=== PATIENT | female | born 1985 | race Caucasian/White ===

== ENCOUNTER 2017-03-15 20:05 | Emergency (ER) | payer MEDICAID ==
[~2017-03-15] VITALS: Ht 165.1 cm; Wt 101.2 kg
[~2017-03-15 20:05] MED LIST: AMOXIL500 MG PO; CIPRO HC 0.2%-110 ML OT; IRON TABLETS325 MG PO; LABETALOL200 MG PO; LASIX 20MG. TAB20 MG PO; MACROBID 100MG100 MG PO; PRENATAL PLUS1 TA1 PO; TAMIFLU 75MG CA75 MG PO; TYLENOL ES500 MG PO
[2017-03-15] MEDS ORDERED: HYDROCHLOROTHIA25 M1 PO (21:03)
--- NOTE | 2017-03-15 21:04 | Emergency Room Report ---
History of Present Illness Time Seen by [id number] Presenting Problem in Triage Pt arrived:Walked Presenting Problem:WHILE PLAYING SOFTBALL SHE WAS HIT IN THE HIT WITH THE BALL. 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 N Clinical Suspician of Infection? N Mental Status: 1 - Regular (Normal Baseline) Sepsis Risk:Possible Sepsis Risk Have you (or family members/close friends) recently traveled outside the [place]? N If Yes, where/when: Have you had exposure to infectious disease within the past month? N TB? Other? Specify: Comment The patient was hit with a thrown softball at about 2:30 to 3 PM. It hit her in her glasses in the region of her left eye. She sustained a laceration under her LEFT eyebrow from the glasses. The glasses were not broken or shattered. She had no loss of consciousness. Mild headache around the area of impact. Last tetanus shot greater than 5 years ago. No other injuries. No vomiting. She wants Dermabond, rather than sutures. ALLERGIES Coded Allergies: No Known Allergies (10/08/16) History Medical History General CAD? No Angina: No VA: No Hypertension? Yes Hyperlipidemia? No CHF? No DVT? No PE? No COPD? No Asthma? No Anemia? No GERD? No Gastric ulcers? No GI Bleed? No Hernia? No Thyroid Problems? No Hypothyroidism? No CVA? No Seizures? No Diabetes? No Renal Insuffiency? No End Stage Renal Disease? No UTI? No Stones? No GB Disease: No Nephritic Syndrome? No Asplenia? No Hepatitis? No Sickle Cell Disease? No Arthritis? No Migraines? No Cataracts? No Glaucoma? No MRSA? No HIV? No TB? No Anxiety? No Depression? No Cancer? 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 Social History Smoking Hx Smoker: Current Every Day Smoker Tobacco: Yes Type Cigarettes Packs/day < 1 Pack Are you/the child exposed to second-hand smoke: Yes Alcohol Alcohol: No Review of Systems All Other Systems Reviewed and Negative Eyes blurred vision (LEFT eye on upward gaze), denies blindness Musculoskeletal denies neck pain Psychiatric/Neurological headache, denies numbness, denies weakness Physical Exam Vital Signs Vital Signs Date Time Temp Pulse Resp B/P Pulse O2 O2 Flow FiO2 Ox Delivery Rate 03/15 2048 109 198 179/109 98 General Appearance normal appearance, no apparent distress, high BMI Eye Exam - bilateral eye normal exam, bilateral eye PERRL, bilateral eye EOMI Ear, Nose, Throat 2 cm laceration transversely under the medial aspect of her RIGHT eyebrow. Mild ecchymosis of upper lid. Neck normal inspection, non-tender, supple, full range of motion Respiratory Status Yes: trachea midline, chest symmetrical, non tender chest. No: respiratory distress. Lung Sounds bilateral: normal breath sounds, lungs clear. 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 No Results/Orders Current Medication Orders Sig/Ritchie Start time Last Medication Dose Route Stop Time Status Admin Diphtheria/Pertussis/ 0.5 ML ONCE ONE 03/15 2100 DC Tetanus Vacc IM 03/15 2101 Procedures Laceration/Wound Repair Progress Laceration Repair Performed by: CLARIBEL ONEAL Consent: Verbal consent obtained. Risks and benefits: risks, benefits and alternatives were discussed Consent given by: patient Patient identity confirmed: verbally with patient Laceration location: Face Laceration length: 2 cm Prep: Hibiclens cleansing. Normal saline rinse. Patient sedated: no Closure material: Dermabond Complexity: simple Patient tolerance: Patient tolerated the procedure well with no immediate complications Departure Departure Disposition DC Home or Self Care(routine) Clinical Impression Primary Impression: Laceration of face Qualifiers: Encounter type: initial encounter Qualified Code: S01.81XA - Laceration without foreign body of other part of head, initial encounter Condition STABLE Patient Instructions DI for Laceration Repair With Dermabond Additional Instructions You are being provided with a list of physicians available for follow-up of your condition. Please call a physician on this list to arrange a follow-up appointment as soon as possible. Additional instructions regarding BLOOD PRESSURE: One of your blood pressure readings was higher than normal (greater than 120/80) today. Please contact your primary care physician for further evaluation of your blood pressure within 2 wks. Prescriptions Current Visit Scripts HYDROCHLOROTHIAZIDE (Hydrochlorothiazide) 25 MG PO DAILY #30 TAB ED Critical Care Critical Care No
--- NOTE | 2017-03-15 21:04 | Emergency Room Report ---
History of Present Illness Time Seen by [id number] Presenting Problem in Triage Pt arrived:Walked Presenting Problem:WHILE PLAYING SOFTBALL SHE WAS HIT IN THE HIT WITH THE BALL. 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 N Clinical Suspician of Infection? N Mental Status: 1 - Regular (Normal Baseline) Sepsis Risk:Possible Sepsis Risk Have you (or family members/close friends) recently traveled outside the [place]? N If Yes, where/when: Have you had exposure to infectious disease within the past month? N TB? Other? Specify: Comment The patient was hit with a thrown softball at about 2:30 to 3 PM. It hit her in her glasses in the region of her left eye. She sustained a laceration under her LEFT eyebrow from the glasses. The glasses were not broken or shattered. She had no loss of consciousness. Mild headache around the area of impact. Last tetanus shot greater than 5 years ago. No other injuries. No vomiting. She wants Dermabond, rather than sutures. ALLERGIES Coded Allergies: No Known Allergies (10/08/16) History Medical History General CAD? No Angina: No MO: No Hypertension? Yes Hyperlipidemia? No CHF? No DVT? No PE? No COPD? No Asthma? No Anemia? No GERD? No Gastric ulcers? No GI Bleed? No Hernia? No Thyroid Problems? No Hypothyroidism? No CVA? No Seizures? No Diabetes? No Renal Insuffiency? No End Stage Renal Disease? No UTI? No Stones? No GB Disease: No Nephritic Syndrome? No Asplenia? No Hepatitis? No Sickle Cell Disease? No Arthritis? No Migraines? No Cataracts? No Glaucoma? No MRSA? No HIV? No TB? No Anxiety? No Depression? No Cancer? 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 Social History Smoking Hx Smoker: Current Every Day Smoker Tobacco: Yes Type Cigarettes Packs/day < 1 Pack Are you/the child exposed to second-hand smoke: Yes Alcohol Alcohol: No Review of Systems All Other Systems Reviewed and Negative Eyes blurred vision (LEFT eye on upward gaze), denies blindness Musculoskeletal denies neck pain Psychiatric/Neurological headache, denies numbness, denies weakness Physical Exam Vital Signs Vital Signs Date Time Temp Pulse Resp B/P Pulse O2 O2 Flow FiO2 Ox Delivery Rate 03/15 2048 109 198 179/109 98 General Appearance normal appearance, no apparent distress, high BMI Eye Exam - bilateral eye normal exam, bilateral eye PERRL, bilateral eye EOMI Ear, Nose, Throat 2 cm laceration transversely under the medial aspect of her RIGHT eyebrow. Mild ecchymosis of upper lid. Neck normal inspection, non-tender, supple, full range of motion Respiratory Status Yes: trachea midline, chest symmetrical, non tender chest. No: respiratory distress. Lung Sounds bilateral: normal breath sounds, lungs clear. 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 No Results/Orders Current Medication Orders Sig/Ritchie Start time Last Medication Dose Route Stop Time Status Admin Diphtheria/Pertussis/ 0.5 ML ONCE ONE 03/15 2100 DC Tetanus Vacc IM 03/15 2101 Procedures Laceration/Wound Repair Progress Laceration Repair Performed by: CLARIBEL ONEAL Consent: Verbal consent obtained. Risks and benefits: risks, benefits and alternatives were discussed Consent given by: patient Patient identity confirmed: verbally with patient Laceration location: Face Laceration length: 2 cm Prep: Hibiclens cleansing. Normal saline rinse. Patient sedated: no Closure material: Dermabond Complexity: simple Patient tolerance: Patient tolerated the procedure well with no immediate complications Departure Departure Disposition DC Home or Self Care(routine) Clinical Impression Primary Impression: Laceration of face Qualifiers: Encounter type: initial encounter Qualified Code: S01.81XA - Laceration without foreign body of other part of head, initial encounter Condition STABLE Patient Instructions DI for Laceration Repair With Dermabond Additional Instructions You are being provided with a list of physicians available for follow-up of your condition. Please call a physician on this list to arrange a follow-up appointment as soon as possible. Additional instructions regarding BLOOD PRESSURE: One of your blood pressure readings was higher than normal (greater than 120/80) today. Please contact your primary care physician for further evaluation of your blood pressure within 2 wks. Prescriptions Current Visit Scripts HYDROCHLOROTHIAZIDE (Hydrochlorothiazide) 25 MG PO DAILY #30 TAB ED Critical Care Critical Care No
[2017-03-15 21:21] VITALS: BP 179/109
--- OUTSIDE RECORDS SUMMARY | 2017-03-15 21:22 | External Medical Summary Rpt ---
Author Author , TYRONE HANSEN Address Unknown Phone [email or web address] Care Team Providers Care Grass Cutter Name Role Phone Mahesh Gannon MD, Unavailable Unavailable Mahesh PIERRE LORI, GABBY Unavailable Unavailable LORI GABBY SANDOVAL, GABBY Unavailable Unavailable LORI [facility] Unavailable Unavailable [place], [facility] [place] DUC OMAR, DUC Unavailable Unavailable OMAR DUC OMAR, DUC Unavailable Unavailable OMAR [facility] Unavailable Unavailable [place], [facility] Unavailable Unavailable [facility], [facility] Unavailable Unavailable [facility], [facility] Helena Molina MD, Unavailable Unavailable Helena Molina MD PICKLESIMER JR LORENA, Unavailable Unavailable PICKLESIMER JR LORENA PICKLESIMER JR LORENA, Unavailable Unavailable PICKLESIMER JR LORENA SCIFRES ANG, SCIFRES Unavailable Unavailable ANG SCIFRES ANG, SCIFRES Unavailable Unavailable ANG Purpose Continuity of Care Document - 12-13-2012 through 2016 Problems Code Diagnosis DOS Provider Status I10 ESSENTIAL 10-08-2016 [facility] HYPERTENSIO INC N J101 FLU D/T OTH 10-08-2016 [facility] VIRUS OTH INC RESP MANIFESTATI ONS Z720 TOBACCO USE 10-08-2016 [facility] INC 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 05-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 SCIFRES ANG BILATERAL V2511 ENC FOR 12-20-2013 GABBY LORI INSERTION INTRAUTERIN E CONTRACEPT DEVICE V242 ROUTINE 12-13-2013 PICKLESIMER JR LORENA FOLLOW-UP V745 SCREENING 12-13-2013 MARIELYIMER EXAMINATION JR LORENA FOR VENEREAL DISEASE 7823 EDEMA 11-12-2013 DUC OMAR 04580 MORBID 11-08-2013 [facility] 71239 BENIGN 11-08-2013 [facility] HYPERTENSIO INC N WITH DELIVERY 11216 OBESITY 11-08-2013 [facility] PG [facility] CHILDBIRTH/ INC THE PP DELIVERED 650 NORMAL 11-08-2013 PIERRE LORI DELIVERY 49140 OTH&UNS CRD 11-08-2013 [facility]ANGL [facility] W/O COMPRS INC COMP L&D DELIV 26999 FIRST-DEGRE 11-08-2013 [facility] E PERINEAL [facility] LACERATION INC WITH DELIVERY V072 NEED FOR 11-08-2013 [facility] PROPHYLACTI [facility] C INC IMMUNOTHERA PY V270 OUTCOME OF 11-08-2013 [facility]ERY [facility] SINGLE INC LIVEBORN V220 SUPERVISION 11-03-2013 PIERRE LORI OF NORMAL FIRST 89364 TRANSIENT 10-27-2013 [facility]YPERTENSIO [facility] N OF INC ANTEPARTUM 31093 BREECH 10-13-2013 GABBY LORI PRESENTATIO N W/O MENTION VERSION ANTPRTM 80982 EXCESS 10-13-2013 GABBY LORI GROWTH AFFECT MGMT MOTH ANTPRTM V283 ENCOUNTER 06-30-2013 GABBY LORI ROUTINE SCREEN MALFORMATIO N ULTRASONIC 6268 OTH D/O 04-26-2013 [facility]ENSTRUATIO [facility] N&OTH ABN INC BLEED FE GNT TRACT 99836 OTHER 04-20-2013 GABBY LORI SPECIFED COMPLICATIO N ANTEPARTUM 89023 TRICHOMONAL 04-13-2013 PICKLESIMER LORENA VULVOVAGINI TIS V221 SUPERVISION 04-13-2013 PICKLESIMER OF OTHER JR LORENA NORMAL V7242 04-13-2013 GABBY LORI EXAMINATION OR TEST POSITIVE RESULT V2689 OTHER 03-23-2013 [facility] [place] [facility] 305.1 305.1 03-18-2013 [place] TOBACCO USE [facility] 646.53 646.53 ASY 03-18-2013 [place] BACTERIURIA [facility] 380.4 380.4 12-13-2012 [place] IMPACTED [facility] 382.9 382.9 12-13-2012 [place] OTITIS [facility] MEDIA NOS Hospital Allergies, Adverse Reactions, Alerts Type Allergy to substance Adverse Reaction to Substance Substance Reaction Severity NO KNOWN ALLERGIES Unknown Unknown Medications Na ND Rx Da Fi Fi Am Da Di Ph RX Ph St me C No te ll ll ou ys ag ar # ys at rm s nt no ma ic us Or Da si cy ia de te s n re d OS 47 02 03 10 5 00 EA Ac EL 78 -2 -[address] ti TA 10 2- 4- 00 00 SI ve OK 47 20 20 47 DE 01 17 17 71 R 3 65 PH PH AR OS MA CY 75 OF MG CY NT CA HI PS AN UL A E IN C Vital Signs 03-18-2013 17:28 Name Value Interpretat Reference Comment ion Range BP 91 mm[Hg] Diastolic BP Systolic 152 mm[Hg] Heart 81 /min Rate/Pulse O2% 97 % Respiratory 20 /min Rate 03-18-2013 13:44 Name Value Interpretat Reference Comment ion Range BP 109 mm[Hg] Diastolic BP Systolic 191 mm[Hg] Heart 102 /min Rate/Pulse O2% 98 % Respiratory 17 /min Rate 12-13-2012 18:36 Name Value Interpretat Reference Comment ion Range Body 97.6 [degF] Temperature BP 101 mm[Hg] Diastolic BP Systolic 160 mm[Hg] Heart 89 /min Rate/Pulse O2% 95 % Respiratory 18 /min Rate 12-13-2012 18:35 Name Value Interpretat Reference Comment ion Range Body 97.6 [degF] Temperature BP 101 mm[Hg] Diastolic BP Systolic 160 mm[Hg] Heart 89 /min Rate/Pulse O2% 95 % Respiratory 18 /min Rate Results Labs Lab Lab Date Result Refere Interp Status Commen Order Detail nces retati t Range on B-HCG SerPl EIA 3rd [facility] (03-18-2013 13:58) B-HCG 6446.2 complet SerPl 013 mIU/ML ed EIA 3rd 13:58 [facility] B-HCG Ur Ql (03-18-2013 13:54) B-HCG POSITIV NEG complet Ur Ql 013 E ed 13:54 URINALYSIS/COMPLETE (03-18-2013 13:54) URINE YELLOW YELLOW complet COLOR 013 ed 13:54 URINE SL CLEAR complet APPEARA 013 CLOUDY ed NCE 13:54 URINE NEGATIV NEG complet GLUCOSE 013 E ed - 13:54 DIPSTIC K URINE NEGATIV NEG complet BILIRUB 013 E ed IN - 13:54 DIPSTIC K URINE NEGATIV NEG complet KETONE 013 E mg/dL ed 13:54 URINE 08-02-2 Greater 1.005-1 complet SPECIFI 013 than .030 ed C 13:54 or GRAVITY equal to 1.030 URINE 2 NEGATIV NEG complet BLOOD 013 E ed 13:54 URINE 03-18-2 6.0 UNK 5.0-8.5 complet PH 013 ed 13:54 URINE 03-18-2 NEGATIV NEG complet PROTEIN 013 E mg/dL ed - 13:54 DIPSTIC K URINE 03-18-2 0.2 NEG complet UROBILI 013 E.U./dL ed NOGEN - 13:54 DIPSTIC K URINE 2 NEGATIV NEG complet NITRATE 013 E ed - 13:54 DIPSTIC K URINE 03-18-2 TRACE NEG complet LEUK 013 ed ESTERAS 13:54 E URINE 03-18-2 OCC 0 complet RBC 013 rbc/hpf ed 13:54 URINE 03-18-2 5-10 O complet WBC 013 wbc/hpf ed 13:54 URINE 03-18- 10-20 0-5 complet SQUAMOU 013 #/hpf ed S CELLS 13:54 URINE 03-18-2 OCC O complet BACTERI 013 ed A 13:54 URINE 03-18-2 2+ OCC complet MUCUS 013 ed 13:54 CHLAMYDIA AND GONORRHEA TESTING (03-09-2013 14:30) Chlamyd NEGATIV complet ia 013 E ed trachom 14:30 atis rRNA [Presen ce] in Unspeci fied specime n by Probe & target amplifi cation method Neisser NEGATIV complet ia 013 E ed gonorrh 14:30 oeae rRNA [Presen ce] in Unspeci fied specime n by Probe & target amplifi cation method Treponema pallidum IgG Ab [Presence] in Serum by Immunoassay (03-09-2013 14:30) Trepone NON-TALI complet ma 013 CTIVE ed pallidu 14:30 m IgG Ab [Presen ce] in Serum by Immunoa ssay CHLAMYDIA AND GONORRHEA TESTING (03-09-2013 14:30) COLLECT NA complet OR 013 ed 14:30 ETHNICI WHITE, complet TY 013 NON-HIS ed 14:30 PANIC KIT 03-16-13 complet EXPIRAT 013 ed ION 14:30 DATE SYMPTOM NO complet S 013 ed 14:30 REASON VOLUNTE complet FOR 013 ER/MEDI ed REQUEST 14:30 HAIM PROBLEM SPECIME FEMALE complet N 013 ENDOCER ed SOURCE 14:30 VICAL PREGNAN NO complet T 013 ed 14:30 CHART NA complet NUMBER 013 ed 14:30 Chlamyd Pending complet ia 013 ed trachom 14:30 atis rRNA [Presen ce] in Unspeci fied specime n by Probe & target amplifi cation method Neisser Pending complet ia 013 ed gonorrh 14:30 oeae rRNA [Presen ce] in Unspeci fied specime n by Probe & target amplifi cation method Treponema pallidum IgG Ab [Presence] in Serum by Immunoassay (03-09-2013 14:30) COLLECT NA complet OR 013 ed 14:30 ETHNICI WHITE complet TY 013 ed 14:30 PURPOSE DIAGNOS complet OF 013 TIC ed EXAM 14:30 SPECIME BLOOD complet N 013 ed SOURCE 14:30 CHART NA complet NUMBER 013 ed 14:30 Trepone Pending complet ma 013 ed pallidu 14:30 m IgG Ab [Presen ce] in Serum by Immunoa ssay Procedures Procedure DOS Code Location Performer Comment IAADIADOO 71198 [facility] STREPTOCO INC INC CCUS GROUP A IAADIADOO 32907 [facility] INFLUENZA INC INC OPHTH 82447 SCIFRES SCIFRES MEDICAL 6 ANG ANG XM&EVAL COMPRE NEW PT 1/> VST URINE 70180 GABBY PIERRE 4 LORI LORI TEST VISUAL COLOR CMPRSN METHS [place] J7302 GABBY PIERRE STREL-RLS 4 LORI LORI E INTRAUTER N CNTRACPT 52 MG INSERTION 73278 GABBY PIERRE 4 LORI LORI INTRAUTER INE DEVICE IUD IADNA 39457 PICKLESIM PICKLESIM CHLAMYDIA 4 ER JR LORENA ER JR LORENA TRACHOMAT IS AMPLIFIED PROBE TQ CYTP C/V 14483 PICKLESIM PICKLESIM AUTO THIN 4 ER JR LORENA ER JR [place] LYR PREPJ SCR MNL RESCR PHYS IADNA 50563 PICKLESIM PICKLESIM NEISSERIA 4 ER JR LORENA ER JR [place] GONORRHOE AE AMPLIFIED PROBE TQ INJECTION 9911 [facility] RH [facility] [place] RE[place] 7569 [facility] OTHER [facility] CURRENT INC INC OBSTETRIC LACERATIO N VAGINAL 18445 GABBY PIERRE DELIVERY 4 LORI LORI ONLY W/POSTPAR YANY CARE ANTIBODY 19158 [facility] ID RBC 4 [facility] ANTIBODIE INC INC S EA PANEL EA SERUM TQ FIBRIN 64389 [facility] DGRADJ 4 [facility] PRODUCTS INC INC D-DIMER QUAL/SEMI ZULMA FIBRINOGE 32423 [facility] N [facility] ACTIVITY INC INC PROTHROMB 41077 [facility] IN TIME 4 [facility] INC INC BASIC 24221 [facility] METABOLIC 4 [facility] PANEL INC INC CALCIUM TOTAL THROMBOPL 16003 [facility] ASTIN [facility] TIME INC INC PARTIAL PLASMA/[place] [address] [facility] BLOOD/URI 4 [facility] C ACID INC INC BLOOD 87629 [facility] COUNT [facility] COMPLETE INC INC AUTO&AUTO DIFRNTL WBC TRANSFERA 04522 [facility] SE [facility] ASPARTATE INC INC AMINO AST SGOT TRANSFERA 28908 [facility] SE [facility] ALANINE INC INC AMINO ALT SGPT TRANSFERA 74011 [facility] SE 4 [facility] ALANINE INC INC AMINO ALT SGPT TRANSFERA 29523 [facility] SE 4 [facility] ASPARTATE INC INC AMINO AST SGOT BLOOD 31074 [facility] COUNT 4 [facility] COMPLETE INC INC AUTO&AUTO DIFRNTL WBC PROTEIN 05456 [facility] XCPT 4 [facility] REFRACTOM INC INC ETRY SERUM PLASMA/[place] [address] [facility] BLOOD/URI 4 [facility] C ACID INC INC THROMBOPL 36062 [facility] ASTIN 4 [facility] TIME INC INC PARTIAL PLASMA/WH OLE BLOOD CREATININ 13153 [facility] E 4 [facility] CLEARANCE INC INC BASIC 19052 [facility] METABOLIC 4 [facility] PANEL INC INC CALCIUM TOTAL PROTHROMB 71420 [facility] IN TIME 4 [facility] INC INC FIBRINOGE 83018 [facility] N 4 [facility] ACTIVITY INC INC FIBRIN 44039 [facility] DGRADJ 4 [facility] PRODUCTS INC INC D-DIMER QUAL/SEMI ZULMA ANTIBODY 03478 [facility] ID RBC 4 [facility] ANTIBODIE INC INC S EA PANEL [place] SERUM TQ US PREG 20085 GABBY PIERRE UTERUS 4 LORI LORI REAL TIME F/U TRNSABDL PER FETUS DOPPLER 29177 GABBY PIERRE VELOCIMET 4 LORI LORI RY UMBILICAL ARTERY CUL BACT 79517 COMBINED COMBINED XCPT 4 PHYSICIAN PHYSICIAN URINE S LA S LA BLOOD/STO OL AEROBIC ISOL 36411 GABBY PIERRE BIOPHYSIC 4 LORI LORI AL PROFILE W/O NON-STRES S TESTING INJECTION J2790 [facility] RHO D IG 4 [facility] HUMAN INC INC FULL DOSE 300 MCG BLOOD 08013 [facility] COUNT 4 [facility] HEMATOCRI INC INC T ANTIBODY 87159 [facility] SCREEN 4 [facility] RBC EACH INC INC SERUM TECHNIQUE BLOOD 28280 [facility] TYPING 4 [facility] SEROLOGIC INC INC ABO THERAPEUT 45355 [facility] IC 4 [facility] PROPHYLAC INC INC TIC/DX INJECTION SUBQ/IM BLOOD 09973 [facility] TYPING 4 [facility] SEROLOGIC INC INC RH (D) BLOOD 88389 [facility] COUNT 4 [facility] HEMOGLOBI INC INC N COLLECTIO 93736 GABBY PIERRE N 3 LORI LORI CAPILLARY BLOOD SPECIMEN GLUCOSE 04738 GABBY PIERRE TOLERANCE 3 LORI LORI TEST GTT 3 SPECIMENS US PREG 06042 GABBY PIERRE UTERUS 3 LORI LORI AFTER TRIMEST / GESTATION ALPHA-FET 51839 [facility] OPROTEIN 3 [facility] [place] [address] [facility] ESTRIOL 3 [facility] INC INC GONADOTRO 81688 [facility] PIN 3 [facility] CHORIONIC INC INC QUANTITAT MCKENZIE GONADOTRO 48225 [facility] PIN 3 [facility] CHORIONIC INC INC QUANTITAT MCKENZIE US PREG 31628 GABBY PIERRE UTERUS 3 OLRI LORI REAL TIME W/IMAGE DCMTN TRANSVAG CYTP C/V 30275 PICKLESIM PICKLESIM AUTO THIN 3 ER JR OLRENA ER JR LORENA LYR PREPJ SCR MNL RESCR PHYS URINE 69609 GABBY PIERRE 3 LORI LORI TEST VISUAL COLOR CMPRSN METHS Encounters Encounter Start End Date Code Location Performer Type Date OFFICE 50604 [facility] T VISIT 5 INC MINUTES [facility] OUTPATIEN INC T EMERGENCY 67974 [facility] XAVIER 4 4 [facility] OMAR DEPARTMEN T VISIT HIGH/URGE NT SEVERITY [facility] INPATIENT INC OFFICE 35006 GABBY PIERRE OUTPATIEN 4 4 LORI LORI T VISIT 15 MINUTES OFFICE 36036 GABBY PIERRE OUTPATIEN 4 4 LORI LROI T VISIT 15 MINUTES OFFICE 33180 GABBY PIERRE OUTPATIEN 4 4 LORI LORI T VISIT 15 MINUTES [facility] OUTPATIEN INC T OFFICE 07102 PIERRE PIERRE OUTPATIEN 4 4 LORI LORI T VISIT 15 MINUTES [facility] OUTPATIEN INC T OFFICE 46417 PIERRE PIERRE OUTPATIEN 4 4 LORI LORI T VISIT 15 MINUTES OFFICE 53362 PIERRE PIERRE OUTPATIEN 4 4 LORI LORI T VISIT 15 MINUTES OFFICE 55429 PIERRE PIERRE OUTPATIEN 4 4 LORI LORI T VISIT 15 MINUTES OFFICE 78077 PIERRE PIERRE OUTPATIEN 4 4 LORI LORI T VISIT 15 MINUTES OFFICE 15143 PIERRE PIERRE OUTPATIEN 4 4 LORI LORI T VISIT 15 MINUTES [facility] T OFFICE 64398 GABBY LOUE OUTPATIEN 3 3 LORI LORI T VISIT 5 MINUTES OFFICE 81030 PIERRE PIERRE OUTPATIEN 3 3 LORI LROI T VISIT 15 MINUTES OFFICE 90824 PIERRE PIERRE OUTPATIEN 3 3 L[facility]I LORI T VISIT 15 MINUTES [facility] T OFFICE 97491 PIERRE PIERRE OUTPATIEN 3 3 LORI LORI T VISIT 15 MINUTES OFFICE 08273 [facility] OUTPATIEN 3 3 [facility] 15 SHYANNE MINUTES [facility] OUTPATI[facility] INC T OFFICE 46036 GABBY LOUE OUTPATIEN 3 3 LORI LORI T NEW 45 MINUTES OFFICE 78670 [facility] OUTPATIEN 3 3 [facility] CENTER 25 MINUTES Emergency FAY Molina MD (ER) 3 13:31 3 17:28 [facility] Emergency FAY Gannon MD (ER) 3 18:15 3 18:36 [facility]
--- OUTSIDE RECORDS SUMMARY | 2017-03-15 21:22 | External Medical Summary Rpt ---
Author Author , TYRONE HANSEN Address Unknown Phone [email or web address] Care Team Providers Care Decorating Instructor Name Role Phone Mahesh Gannon MD, Unavailable Unavailable Mahesh PIERRE LORI, GABBY Unavailable Unavailable LORI GABBY SANDOVAL, GABBY Unavailable Unavailable LORI [facility] Unavailable Unavailable [place], [facility] [place] DUC OMAR, DUC Unavailable Unavailable OMAR DUC OMAR, DUC Unavailable Unavailable OMAR [facility] Unavailable Unavailable CLY[facility], [facility] Unavailable Unavailable [facility], [facility] Unavailable Unavailable INC, [facility] Helena Molina MD, Unavailable Unavailable Helena Molina MD PICKLESIMER JR LORENA, Unavailable Unavailable PICKLESIMER JR LORENA PICKLESIMER JR LORENA, Unavailable Unavailable PICKLESIMER JR LORENA SCIFRES ANG, SCIFRES Unavailable Unavailable ANG SCIFRES ANG, SCIFRES Unavailable Unavailable ANG Purpose Continuity of Care Document - 12-13-2012 through 2016 Problems Code Diagnosis DOS Provider Status I10 ESSENTIAL 10-08-2016 [facility] HYPERTENSIO INC N J101 [...] VENEREAL DISEASE 7823 EDEMA 11-12-2013 DUC OMAR 01679 MORBID 11-08-2013 [facility] 29157 BENIGN 11-08-2013 [facility] HYPERTENSIO INC N WITH DELIVERY 78430 OBESITY 11-08-2013 [facility] PG [facility] CHILDB[facility]/ INC THE PP DELIVERED 650 NORMAL 11-08-2013 PIERRE LORI DELIVERY 59712 OTH&UNS CRD 11-08-2013 [facility]NTANGL [facility] W/O COMPRS INC COMP L&D DELIV 01366 FIRST-DEGRE 11-08-2013 [facility] E PERINEAL [facility] LACERATION INC WITH DELIVERY V072 NEED FOR 11-08-2013 [facility] PROPHYLACTI [facility] C INC IMMUNOTHERA PY V270 OUTCOME OF 11-08-2013 [facility] SINGLE INC LIVEBORN V220 SUPERVISION 11-03-2013 PIERRE LORI OF NORMAL FIRST 00413 TRANSIENT 10-27-2013 [facility] N OF INC ANTEPARTUM 25019 BREECH 10-13-2013 GABBY LORI PRESENTATIO N W/O MENTION VERSION ANTPRTM 09901 EXCESS 10-13-2013 GABBY LORI GROWTH AFFECT MGMT MOTH ANTPRTM V283 ENCOUNTER 06-30-2013 GABBY LORI ROUTINE SCREEN MALFORMATIO N ULTRASONIC 6268 OTH D/O 04-26-2013 [facility] MENSTRUATIO [facility] N&OTH ABN INC BLEED FE GNT TRACT 39814 OTHER 04-20-2013 GABBY LORI SPECIFED COMPLICATIO N ANTEPARTUM 22561 TRICHOMONAL 04-13-2013 PICKLESIMER LORENA VULVOVAGINI TIS V221 SUPERVISION 04-13-2013 PICKLESIMER OF OTHER JR LORENA NORMAL V7242 04-13-2013 GABBY LORI EXAMINATION OR TEST POSITIVE RESULT V2689 OTHER 03-23-2013 [facility]IF[facility] 305.1 305.1 03-18-2013 Cylinder TOBACCO USE [facility] 646.53 646.53 ASY 03-18-2013 Little BACTERIURIA [facility] 380.4 380.4 12-13-2012 Little IMPACTED [facility] 382.9 382.9 12-13-2012 Little OTITIS [facility] MEDIA NOS Hospital Allergies, Adverse Reactions, [...] 10 2- 4- [address] 47 20 20 47 DE 01 17 [...] t Range on B-HCG SerPl EIA 3rd [facility] (03-18-2013 13:58) B-HCG 6446.2 complet SerPl 013 mIU/ML ed EIA 3rd 13:58 [facility] B-HCG Ur Ql (03-18-2013 13:54) B-HCG POSITIV [...] Procedure DOS Code Location Performer Comment IAADIADOO 43642 [facility] STREPTOCO INC INC CCUS GROUP A IAADIADOO 43948 [facility] INFLUENZA INC INC OPHTH 97435 SCIFRES SCIFRES MEDICAL 6 ANG ANG XM&EVAL COMPRE NEW PT 1/> VST URINE 50061 GABBY PIERRE 4 LORI LORI TEST VISUAL COLOR CMPRSN METHS L[place]GE J7302 GABBY PIERRE STREL-RLS 4 LORI LORI E INTRAUTER N CNTRACPT 52 MG INSERTION 97541 GABBY PIERRE 4 LORI LORI INTRAUTER INE DEVICE IUD IADNA 89967 PICKLESIM PICKLESIM CHLAMYDIA 4 ER JR LORENA ER JR LORENA TRACHOMAT IS AMPLIFIED PROBE TQ CYTP C/V 54085 PICKLESIM PICKLESIM AUTO THIN 4 ER JR LORENA ER JR LORENA LYR PREPJ SCR MNL RESCR PHYS IADNA 62294 PICKLESIM PICKLESIM NEISSERIA 4 ER JR LORENA ER JR LORENA GONORRHOE AE AMPLIFIED PROBE TQ INJECTION 9911 [facility] OF RH 4 [facility] IMMUNE [place] RE[place] 7569 [facility] OTHER [facility] CURRENT INC INC OBSTETRIC LACERATIO N VAGINAL 33016 GABBY PIERRE DELIVERY 4 LORI LORI ONLY W/POSTPAR YANY CARE ANTIBODY 25635 [facility] ID RBC 4 [facility] ANTIBODIE INC INC S EA PANEL EA SERUM TQ FIBRIN 71778 [facility] DGRADJ 4 [facility] PRODUCTS INC INC D-DIMER QUAL/SEMI ZULMA FIBRINOGE 23346 [facility] N [facility] ACTIVITY INC INC PROTHROMB 41012 [facility] IN TIME 4 [facility] INC INC BASIC 35347 [facility] METABOLIC 4 [facility] PANEL INC INC CALCIUM TOTAL THROMBOPL 50917 [facility] ASTIN 4 [facility] TIME INC INC PARTIAL PLASMA/[place] [address] [facility] BLOOD/URI 4 [facility] C ACID INC INC BLOOD 70289 [facility] COUNT 4 [facility] COMPLETE INC INC AUTO&AUTO DIFRNTL WBC TRANSFERA 87284 [facility] SE [facility] ASPARTATE INC INC AMINO AST SGOT TRANSFERA 02781 [facility] SE [facility] ALANINE INC INC AMINO ALT SGPT TRANSFERA 17137 [facility] SE [facility] ALANINE INC INC AMINO ALT SGPT TRANSFERA 00442 [facility] SE 4 [facility] ASPARTATE INC INC AMINO AST SGOT BLOOD 02495 [facility] COUNT 4 [facility] COMPLETE INC INC AUTO&AUTO DIFRNTL WBC PROTEIN 44234 [facility] XCPT 4 [facility] REFRACTOM INC INC ETRY SERUM PLASMA/[place] [address] [facility] BLOOD/URI 4 [facility] ACID INC INC THROMBOPL 52851 [facility] ASTIN 4 [facility] TIME INC INC PARTIAL PLASMA/WH OLE BLOOD CREATININ 70010 [facility] E 4 [facility] CLEARANCE INC INC BASIC 34391 [facility] METABOLIC 4 [facility] PANEL INC INC CALCIUM TOTAL PROTHROMB 42434 [facility] IN TIME 4 [facility] INC INC FIBRINOGE 96744 [facility] N 4 [facility] ACTIVITY INC INC FIBRIN 01433 [facility] DGRADJ 4 [facility] PRODUCTS INC INC D-DIMER QUAL/SEMI ZULMA ANTIBODY 77606 [facility] ID RBC 4 [facility] ANTIBODIE INC INC S EA PANEL EA SERUM TQ US PREG 68895 GABBY PIERRE UTERUS 4 LORI LORI REAL TIME F/U TRNSABDL PER FETUS DOPPLER 61032 GABBY PIERRE VELOCIMET 4 LORI LORI RY UMBILICAL ARTERY CUL BACT 69374 COMBINED COMBINED XCPT 4 PHYSICIAN PHYSICIAN URINE S LA S LA BLOOD/STO OL AEROBIC ISOL 48366 GABBY PIERRE BIOPHYSIC 4 LORI LORI AL PROFILE W/O NON-STRES S TESTING INJECTION J2790 [facility] RHO D IG 4 [facility] HUMAN INC INC FULL DOSE 300 MCG BLOOD 89637 [facility] COUNT 4 [facility] HEMATOCRI INC INC T ANTIBODY 22014 [facility] SCREEN 4 [facility] RBC EACH INC INC SERUM TECHNIQUE BLOOD 96983 [facility] TYPING 4 [facility] SEROLOGIC INC INC ABO THERAPEUT 69751 [facility] IC 4 [facility] PROPHYLAC INC INC TIC/DX INJECTION SUBQ/IM BLOOD 98625 [facility] TYPING 4 [facility] SEROLOGIC INC INC RH (D) BLOOD 38112 [facility] COUNT 4 [facility] HEMOGLOBI INC INC N COLLECTIO 84950 GABBY PIERRE N 3 LORI LORI CAPILLARY BLOOD SPECIMEN GLUCOSE 61013 GABBY PIERRE TOLERANCE 3 LORI LORI TEST GTT 3 SPECIMENS US PREG 66618 GABBY PIERRE UTERUS 3 LORI LORI AFTER TRIMEST / GESTATION ALPHA-FET 95435 [facility] OPROTEIN 3 [facility] [place] [address] [facility] ESTRIOL 3 [facility] INC INC GONADOTRO 06454 [facility] PIN 3 [facility] CHORIONIC INC INC QUANTITAT MCKENZIE GONADOTRO 74488 [facility] PIN 3 [facility] CHORIONIC INC INC QUANTITAT MCKENZIE US PREG 54610 GABBY PIERRE UTERUS 3 LORI LORI REAL TIME W/IMAGE DCMTN TRANSVAG CYTP C/V 23104 PICKLESIM PICKLESIM AUTO THIN 3 ER JR LORENA ER JR LORENA LYR PREPJ SCR MNL RESCR PHYS URINE 68886 GABBY PIERRE 3 LORI LORI TEST VISUAL COLOR CMPRSN METHS Encounters Encounter Start End Date Code Location Performer Type Date OFFICE 31344 [facility] T VISIT 5 INC MINUTES [facility] OUTPATIEN INC T EMERGENCY 10147 [facility] XAVIER 4 4 [facility] OMAR DEPARTMEN T VISIT HIGH/URGE NT SEVERITY [facility] INPATIENT INC OFFICE 46760 GABBY PIERRE OUTPATIEN 4 4 LORI LORI T VISIT 15 MINUTES OFFICE 48332 GABBY PIERRE OUTPATIEN 4 4 LORI LORI T VISIT 15 MINUTES OFFICE 90466 GABBY PIERRE OUTPATIEN 4 4 LORI LORI T VISIT 15 MINUTES [facility] OUTPATIEN INC T OFFICE 87329 PIERRE PIERRE OUTPATIEN 4 4 LORI LORI T VISIT 15 MINUTES [facility] OUTPATIEN INC T OFFICE 75722 PIERRE PIERRE OUTPATIEN 4 4 LORI LORI T VISIT 15 MINUTES OFFICE 33844 PIERRE PIERRE OUTPATIEN 4 4 LORI LORI T VISIT 15 MINUTES OFFICE 76769 PIERRE PIERRE OUTPATIEN 4 4 LORI LORI T VISIT 15 MINUTES OFFICE 17761 PIERRE PIERRE OUTPATIEN 4 4 LORI LORI T VISIT 15 MINUTES OFFICE 23848 PIERRE PIERRE OUTPATIEN 4 4 LORI LORI T VISIT 15 MINUTES [facility] OUTPATIEN INC T OFFICE 51686 GABBY LOUE OUTPATIEN 3 3 LORI LORI T VISIT 5 MINUTES OFFICE 80329 PIERRE PIERRE OUTPATIEN 3 3 LORI LORI T VISIT 15 MINUTES OFFICE 50937 PIERRE PIERRE OUTPATIEN 3 3 LORI LORI T VISIT 15 MINUTES [facility] OUTPATIEN INC T OFFICE 89631 PIERRE PIERRE OUTPATIEN 3 3 LORI LORI T VISIT 15 MINUTES OFFICE 98986 [facility] 3 [facility]I T VISIT [facility]IN[facility] OF 15 SHYANNE MINUTES [facility] OUTPATIEN INC T OFFICE 41829 GABBY LOUE OUTPATIEN 3 3 LORI LORI T NEW 45 MINUTES OFFICE 06580 [facility] OUTPATIEN 3 3 [facility] T VISIT CENTER CENTER 25 MINUTES Emergency FAY Molina MD (ER) 3 13:31 3 17:28 [facility] Emergency FAY Gannon MD (ER) 3 18:15 3 18:36 [facility]
--- OUTSIDE RECORDS SUMMARY | 2017-03-15 21:23 | External Medical Summary Rpt ---
Demographics Preferred Language Citizen Of [place] Marital Status Unknown Restorationist Affiliation Unknown Race Unknown Ethnic Group Unknown Author Author , TYRONE HANSEN Address Unknown Phone Immunization Unable to retrieve immunization data due to connection failure with Immunization Registry. Please try again later.
--- OUTSIDE RECORDS SUMMARY | 2017-03-15 21:23 | External Medical Summary Rpt ---
Author Author [employer] Address Unknown Phone Unavailable Results CHLAMYDIA AND GONORRHEA TESTING Observa Value Referen Units Interpr Notes Date tion ce etation Range COLLECT NA No No No No Mar 09 OR informa informa informa informa 2013 tion in tion in tion in tion in 2:30 PM source source source source data data data data ETHNICI WHITE, No No No No Mar 09 TY NON-HIS informa informa informa informa 2013 PANIC tion in tion in tion in tion in 2:30 PM source source source source data data data data KIT 7-31-13 No No No No Mar 09 EXPIRAT informa informa informa informa 2013 ION tion in tion in tion in tion in 2:30 PM DATE source source source source data data data data SYMPTOM NO No No No No Mar 09 S informa informa informa informa 2013 tion in tion in tion in tion in 2:30 PM source source source source data data data data REASON VOLUNTE No No No No Mar 09 FOR ER/MEDI informa informa informa informa 2013 REQUEST HAIM tion in tion in tion in tion in 2:30 PM PROBLEM source source source source data data data data SPECIME FEMALE No No No No Mar 09 N ENDOCER informa informa informa informa 2013 SOURCE VICAL tion in tion in tion in tion in 2:30 PM source source source source data data data data PREGNAN NO No No No No Mar 09 T informa informa informa informa 2013 tion in tion in tion in tion in 2:30 PM source source source source data data data data CHART NA No No No No Mar 09 NUMBER informa informa informa informa 2013 tion in tion in tion in tion in 2:30 PM source source source source data data data data Chlamyd NEGATIV No No No NEGATIV Mar 09 ia E informa informa informa E 2013 trachom tion in tion in tion in RESULT= 2:30 PM atis source source source WITHIN rRNA data data data NORMAL [Presen ce] in LIMITSP Unspeci OSITIVE fied specime RESULT= n by Probe & ABNORMA target LEQUIVO HAIM amplifi RESULT= cation method INDETER MINATEU NSATISF ACTORY RESULT= INVALID Neisser NEGATIV No No No NEGATIV Mar 09 ia E informa informa informa E 2013 gonorrh tion in tion in tion in RESULT= 2:30 PM oeae source source source WITHIN rRNA data data data NORMAL [Presen ce] in LIMITSP Unspeci OSITIVE fied specime RESULT= n by Probe & ABNORMA target LEQUIVO HAIM amplifi RESULT= cation method INDETER MINATEU NSATISF ACTORY RESULT= INVALID THE APTIMA COMBO 2 ASSAY IS NOT INTENDE D FOR THE EVALUAT ION OF SUSPECT EDSEXUA L ABUSE OR FOR OTHER MEDICO- LEGAL INDICAT IONS. FOR THOSE PATIENT S FORWHOM A FALSE POSITIV E RESULT MAY HAVE ADVERSE PSYCHO- SOCIAL IMPACT, [facility] MM[facility] RETESTI NG.\.br \This report contain s patient informa tion that must be protect ed in accorda nce with the Health Insuran ce Portabi lity and Account ability Act. Treponema pallidum IgG Ab [Presence] in Serum by Immunoassay Observa Value Referen Units Interpr Notes Date tion ce etation Range COLLECT NA No No No No Mar 09 OR informa informa informa informa 2013 tion in tion in tion in tion in 2:30 PM source source source source data data data data ETHNICI WHITE No No No No Mar 09 TY informa informa informa informa 2013 tion in tion in tion in tion in 2:30 PM source source source source data data data data PURPOSE DIAGNOS No No No No Mar 09 OF TIC informa informa informa informa 2013 EXAM tion in tion in tion in tion in 2:30 PM source source source source data data data data SPECIME BLOOD No No No No Mar 09 N informa informa informa informa 2013 SOURCE tion in tion in tion in tion in 2:30 PM source source source source data data data data CHART NA No No No No Mar 09 NUMBER informa informa informa informa 2013 tion in tion in tion in tion in 2:30 PM source source source source data data data data Trepone NON-TALI No No No METHOD Mar [address] informa informa informa OF 2013 pallidu tion in tion in tion in ANALYSI 2:30 PM m IgG source source source S: Ab data data data EIANORM [Presen AL ce] in RANGE: Serum NON-TALI by CTIVE\. Immunoa br\This ssay report contain s patient informa tion that must be protect ed in accorda nce with the Health Insuran ce Portabi lity and Account ability Act. CHLAMYDIA AND GONORRHEA TESTING Observa Value Referen Units Interpr Notes Date tion ce etation Range COLLECT NA No No No No Mar 09 OR informa informa informa informa 2013 tion in tion in tion in tion in 2:30 PM source source source source data data data data ETHNICI WHITE, No No No No Mar 09 TY NON-HIS informa informa informa informa 2013 PANIC tion in tion in tion in tion in 2:30 PM source source source source data data data data KIT 7-31-13 No No No No Mar 09 EXPIRAT informa informa informa informa 2013 ION tion in tion in tion in tion in 2:30 PM DATE source source source source data data data data SYMPTOM NO No No No No Mar 09 S informa informa informa informa 2013 tion in tion in tion in tion in 2:30 PM source source source source data data data data REASON VOLUNTE No No No No Mar 09 FOR ER/MEDI informa informa informa informa 2013 REQUEST HAIM tion in tion in tion in tion in 2:30 PM PROBLEM source source source source data data data data SPECIME FEMALE No No No No Mar 09 N ENDOCER informa informa informa informa 2013 SOURCE VICAL tion in tion in tion in tion in 2:30 PM source source source source data data data data PREGNAN NO No No No No Mar 09 T informa informa informa informa 2013 tion in tion in tion in tion in 2:30 PM source source source source data data data data CHART NA No No No No Mar 09 NUMBER informa informa informa informa 2013 tion in tion in tion in tion in 2:30 PM source source source source data data data data Chlamyd Pending No No No No Mar 09 ia informa informa informa informa 2013 trachom tion in tion in tion in tion in 2:30 PM atis source source source source rRNA data data data data [Presen ce] in Unspeci fied specime n by Probe & target amplifi cation method Neisser Pending No No No \.br\Mar 09 ia informa informa informa is 2013 gonorrh tion in tion in tion in report 2:30 PM oeae source source source contain rRNA data data data s [Presen patient ce] in Unspeci informa fied tion specime that n by must be Probe & target protect ed in amplifi accorda cation nce method with the Health Insuran ce Portabi lity and Account ability Act. Treponema pallidum IgG Ab [Presence] in Serum by Immunoassay Observa Value Referen Units Interpr Notes Date tion ce etation Range COLLECT NA No No No No Mar 09 OR informa informa informa informa 2013 tion in tion in tion in tion in 2:30 PM source source source source data data data data ETHNICI WHITE No No No No Mar 09 TY informa informa informa informa 2013 tion in tion in tion in tion in 2:30 PM source source source source data data data data PURPOSE DIAGNOS No No No No Mar 09 OF TIC informa informa informa informa 2013 EXAM tion in tion in tion in tion in 2:30 PM source source source source data data data data SPECIME BLOOD No No No No Mar 09 N informa informa informa informa 2013 SOURCE tion in tion in tion in tion in 2:30 PM source source source source data data data data CHART NA No No No No Mar 09 NUMBER informa informa informa informa 2013 tion in tion in tion in tion in 2:30 PM source source source source data data data data Trepone Pending No No No \.brMar 09 ma informa informa informa is 2013 pallidu tion in tion in tion in report 2:30 PM m IgG source source source contain Ab data data data s [Presen patient ce] in Serum informa by tion Immunoa that ssay must be protect ed in accorda nce with the Health Insuran logan Kimball lity and Account ability Act.
--- OUTSIDE RECORDS SUMMARY | 2017-03-15 21:23 | External Medical Summary Rpt ---
Demographics Preferred Language Mold[place] Marital Status Unknown Episcopal Affiliation Unknown Race Unknown Ethnic Group Unknown Author Author , TYRONE HANSEN Address Unknown Phone Immunization Unable to retrieve immunization data due to connection failure with Immunization Registry. Please try again later.
--- OUTSIDE RECORDS SUMMARY | 2017-03-15 21:23 | External Medical Summary Rpt ---
Author Author [employer], [employer] Organization [employer] Address Unknown Phone Unavailable [...] MAY HAVE ADVERSE PSYCHO- SOCIAL IMPACT, [facility] MMEN[facility] RETESTI NG.\.br \This report contain s [...]
--- OUTSIDE RECORDS SUMMARY | 2017-03-15 21:23 | External Medical Summary Rpt ---
Author Author , TYRONE HANSEN Address Unknown Phone [email or web address] Care Team Providers Care Mushroom Farmer Name Role Phone GABBY LORI, GABBY Unavailable Unavailable LORI GABBY LORI, GABBY Unavailable Unavailable L[facility]I [facility] [place] [facility] [place] DUC OMAR, DUC Unavailable Unavailable OMAR DUC OMAR, DUC Unavailable Unavailable [facility] Unavailable Unavailable [place], [facility] Unavailable Unavailable [facility], [facility] Un[facility] Unavailable [facility], [facility] [employer]ER [employer] LORENA, Unavailable Unavailable [facility] [employer] [facility], Unavailable Unavailable [facility] SCIFRES ANG, SCIFRES Unavailable Unavailable ANG SCIFRES ANG, SCIFRES Unavailable Unavailable ANG Purpose Continuity of Care Document - 03-23-2013 through 2016 Problems Code Diagnosis DOS Provider Status I10 ESSENTIAL 10-08-2016 [facility] HYPERTENSIO INC N J101 FLU D/T OTH 10-08-2016 [facility] VIRUS OTH INC RESP MANIFESTATI ONS Z720 TOBACCO USE 10-08-2016 [facility] INC 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 05-24-2016 SCIFRES ANG BILATERAL V2511 ENC FOR 12-20-2013 GABBY LORI INSERTION INTRAUTERIN E CONTRACEPT DEVICE V242 ROUTINE 12-13-2013 PICKLESIMER JR LORENA FOLLOW-UP V745 SCREENING 12-13-2013 PICKLESIMER EXAMINATION JR LORENA FOR VENEREAL DISEASE 7823 EDEMA 11-12-2013 DUC OMAR 57044 MORBID 11-08-2013 [facility] INC 41792 BENIGN 11-08-2013 [facility]ENTIAL [facility] HYPERTENSIO INC N WITH DELIVERY 05598 OBESITY 11-08-2013 [facility] PG [facility] CHILDBIRTH/ INC THE PP DELIVERED 650 NORMAL 11-08-2013 PIERRE LORI DELIVERY 99320 OTH&UNS CRD 11-08-2013 [facility]GL [facility] W/O COMPRS INC COMP L&D DELIV 21842 FIRST-DEGRE 11-08-2013 [facility] PERINEAL [facility] LACERATION INC WITH DELIVERY V072 NEED FOR 11-08-2013 [facility]HYLACTI [facility] C INC IMMUNOTHERA PY V270 OUTCOME OF 11-08-2013 [facility] DELIVERY [facility] SINGLE INC LIVEBORN V220 SUPERVISION 11-03-2013 GABBY SANDOVAL OF NORMAL FIRST 96731 TRANSIENT 10-27-2013 [facility]O [facility] N OF INC ANTEPARTUM 01297 BREECH 10-13-2013 GABBY LORI PRESENTATIO N W/O MENTION VERSION ANTPRTM 28437 EXCESS 10-13-2013 GABBY LORI GROWTH AFFECT MGMT MOTH ANTPRTM V283 ENCOUNTER 06-30-2013 GABBY SANDOVAL ROUTINE SCREEN MALFORMATIO N ULTRASONIC 6268 OTH D/O 04-26-2013 [facility]ENSTRUATIO [facility] N&OTH ABN INC BLEED FE GNT TRACT 52691 OTHER 04-20-2013 GABBY LORI SPECIFED COMPLICATIO N ANTEPARTUM 95281 TRICHOMONAL 04-13-2013 JOEL JR LORENA VULVOVAGINI TIS V221 SUPERVISION 04-13-2013 PICKLESIMER OF OTHER JR LORENA NORMAL V7242 04-13-2013 GABBY SANDOVAL EXAMINATION OR TEST POSITIVE RESULT V2689 OTHER 03-23-2013 [facility] Medications Na ND Rx Da Fi Fi [...] 10 2- 4- 00 00 SI ve TX 47 20 20 47 DE 01 17 17 71 R 3 65 PH PH AR OS MA CY 75 OF MG CY NT CA HI PS AN UL A E IN C Procedures Procedure DOS Code Location Performer Comment IAADIADOO 76285 [facility] STREPTOCO INC INC CCUS GROUP A IAADIADOO 68205 [facility] INFLUENZA INC INC OPHTH 88856 SCIFRES SCIFRES MEDICAL 6 ANG ANG XM&EVAL COMPRE NEW PT 1/> VST LEVONORGE J7302 GABBY PIERRE STREL-RLS 4 LORI LORI E INTRAUTER N CNTRACPT 52 MG URINE 12025 GABBY PIERRE 4 LORI LORI TEST VISUAL COLOR CMPRSN METHS INSERTION 22878 GABBY PIERRE 4 LORI LORI INTRAUTER INE DEVICE IUD IADNA 37831 PICKLESIM PICKLESIM CHLAMYDIA 4 ER JR LORENA ER JR LORENA TRACHOMAT IS AMPLIFIED PROBE TQ IADNA 85044 PICKLESIM PICKLESIM NEISSERIA 4 ER JR LORENA ER JR LORENA GONORRHOE AE AMPLIFIED PROBE TQ CYTP C/V 18861 PICKLESIM PICKLESIM AUTO THIN 4 ER JR LORENA ER JR LORENA LYR PREPJ SCR MNL RESCR PHYS INJECTION 9911 [facility] OF RH 4 [facility] [place] RE[place] 7569 [facility] OTHER 4 [facility] CURRENT INC INC OBSTETRIC LACERATIO N VAGINAL 20322 GABBY LOUE DELIVERY 4 LORI LORI ONLY W/POSTPAR YANY CARE BASIC 15345 [facility] METABOLIC 4 [facility] PANEL INC INC CALCIUM TOTAL TRANSFERA 41419 [facility] SE [facility] ASPARTATE [place] [address] [facility] BLOOD/URI 4 [facility] C ACID INC INC THROMBOPL 90137 [facility] ASTIN 4 [facility] TIME INC INC PARTIAL PLASMA/WH OLE BLOOD BLOOD 97904 [facility] COUNT 4 [facility] COMPLETE INC INC AUTO&AUTO DIFRNTL WBC TRANSFERA 49221 [facility] SE 4 [facility] ALANINE INC INC AMINO ALT SGPT FIBRIN 69582 [facility] DGRADJ 4 [facility] PRODUCTS INC INC D-DIMER QUAL/SEMI ZULMA FIBRINOGE 87120 [facility] N 4 [facility] ACTIVITY INC INC PROTHROMB 61365 [facility] FITHC IN TIME 4 [facility] INC INC ANTIBODY 76565 [facility] ID RBC 4 [facility] ANTIBODIE INC INC S EA PANEL EA SERUM TQ ANTIBODY 20133 [facility] ID RBC 4 [facility] ANTIBODIE INC INC S EA PANEL EA SERUM TQ PROTHROMB 63019 [facility] IN TIME 4 [facility] INC INC FIBRINOGE 22037 [facility] N 4 [facility] ACTIVITY INC INC FIBRIN 70499 [facility] DGRADJ 4 [facility] PRODUCTS INC INC D-DIMER QUAL/SEMI ZULMA THROMBOPL 71050 [facility] ASTIN 4 [facility] TIME INC INC PARTIAL PLASMA/[place] [address] [facility] BLOOD/URI 4 [facility] C ACID INC INC TRANSFERA 36603 [facility] SE 4 [facility] ALANINE INC INC AMINO ALT SGPT TRANSFERA 81500 [facility] L[facility] SE 4 [facility] ASPARTATE INC INC AMINO AST SGOT BASIC 40830 [facility] METABOLIC 4 [facility] PANEL INC INC CALCIUM TOTAL CREATININ 88738 [facility]ER[facility]IRO FITCH E 4 [facility] CLEARANCE INC INC BLOOD 01245 [facility] COUNT 4 [facility] COMPLETE INC INC AUTO&AUTO DIFRNTL WBC PROTEIN 58078 [facility] XCPT 4 [facility] REFRACTOM INC INC ETRY SERUM PLASMA/WH L BLD US PREG 45367 GABBY PIERRE UTERUS 4 LORI LORI REAL TIME F/U TRNSABDL PER FETUS DOPPLER 63973 GABBY PIERRE VELOCIMET 4 LORI LORI RY UMBILICAL ARTERY 71470 GABBY PIERRE BIOPHYSIC 4 LORI LORI AL PROFILE W/O NON-STRES S TESTING CUL BACT 80489 COMBINED COMBINED XCPT 4 PHYSICIAN PHYSICIAN URINE S LA S LA BLOOD/STO OL AEROBIC ISOL BLOOD 65665 [facility] TYPING 4 [facility] SEROLOGIC INC INC RH (D) THERAPEUT 18686 [facility] IC 4 [facility] PROPHYLAC INC INC TIC/DX INJECTION SUBQ/IM BLOOD 32304 [facility] COUNT 4 [facility] HEMOGLOBI INC INC N BLOOD 88879 [facility] COUNT 4 [facility] HEMATOCRI INC INC T ANTIBODY 31786 [facility] SCREEN 4 [facility] RBC EACH INC INC SERUM TECHNIQUE BLOOD 20531 [facility] TYPING 4 [facility] SEROLOGIC INC INC ABO INJECTION J2790 [facility] RHO D IG 4 [facility] HUMAN INC INC FULL DOSE 300 MCG GLUCOSE 27539 GABBY PIERRE TOLERANCE 3 LORI LORI TEST GTT 3 SPECIMENS COLLECTIO 56605 GABBY PIERRE N 3 LORI LORI CAPILLARY BLOOD SPECIMEN US PREG 39735 GABBY PIERRE UTERUS 3 LORI LORI AFTER TRIMEST GESTATION ALPHA-FET 61394 [facility] OPROTEIN 3 [facility] [place] [address] [facility] ESTRIOL 3 [facility] INC INC GONADOTRO 53344 [facility] PIN 3 [facility] CHORIONIC INC INC QUANTITAT MCKENZIE GONADOTRO 70348 [facility] PIN 3 [facility] CHORIONIC INC INC QUANTITAT MCKENZIE US PREG 57492 GABBY PIERRE UTERUS 3 LORI LORI REAL TIME W/IMAGE DCMTN TRANSVAG URINE 54530 GABBY PIERRE 3 LORI LORI TEST VISUAL COLOR CMPRSN METHS CYTP C/V 44979 PICKLESIM PICKLESIM AUTO THIN 3 ER JR LORENA ER JR LORENA LYR PREPJ SCR MNL RESCR PHYS Encounters Encounter Start End Date Code Location Performer Type Date OFFICE 57952 [facility] 7 7 [facility] T VISIT 5 INC MINUTES [facility] 7 7 [facility] OUTPATIEN INC T EMERGENCY 79929 DUC XAVIER 4 4 OMAR OMAR DEPARTMEN T VISIT HIGH/URGE NT SEVERITY [facility] INPATIENT INC OFFICE 45568 [facility]RE PIERRE OUTPATIEN 4 4 LORI LORI T VISIT 15 MINUTES OFFICE 48292 PIERRE PIERRE OUTPATIEN 4 4 LORI LORI T VISIT 15 MINUTES [facility] OUTPATIEN INC T OFFICE 40328 PIERRE PIERRE OUTPATIEN 4 4 LORI LORI T VISIT 15 MINUTES OFFICE 78066 [facility]ERRE PIERRE OUTPATIEN 4 4 LORI LORI T VISIT 15 MINUTES [facility] OUTPATIEN INC T OFFICE 48635 PIERRE PIERRE OUTPATIEN 4 4 LORI OLRI T VISIT 15 MINUTES OFFICE 14549 PIERRE PIERRE OUTPATIEN 4 4 LORI LORI T VISIT 15 MINUTES OFFICE 74806 PIERRE PIERRE OUTPATIEN 4 4 LORI LORI T VISIT 15 MINUTES OFFICE 86386 PIERRE PIERRE OUTPATIEN 4 4 LORI LORI T VISIT 15 MINUTES OFFICE 59540 PIERRE PIERRE OUTPATIEN 4 4 LORI LORI T VISIT 15 MINUTES [facility] OUTPATIEN INC T OFFICE 04719 PIERRE PIERRE OUTPATIEN 3 3 LORI LORI T VISIT 5 MINUTES OFFICE 13093 [facility]RE PIERRE OUTPATIEN 3 3 LORI LORI T VISIT 15 MINUTES OFFICE 40096 [facility]RE PIERRE OUTPATIEN 3 3 LORI LORI T VISIT 15 MINUTES [facility] OUTPATIEN INC T OFFICE 82530 GABBY LOUE OUTPATIEN 3 3 LORI LORI T VISIT 15 MINUTES OFFICE 14410 [facility] [place] MINUTES [facility]IEN [facility] T OFFICE 23519 GABBY PIERRE OUTPATIEN 3 3 LORI LORI T NEW 45 MINUTES OFFICE 94255 [facility] 3 3 [facility] T VISIT CENTER CENTER 25 MINUTES
--- OUTSIDE RECORDS SUMMARY | 2017-03-15 21:23 | External Medical Summary Rpt ---
Author Author , TYRONE HANSEN Address Unknown Phone [email or web address] Care Team Providers Care Engineering Vice President Name Role Phone GABBY LORI, GABBY Unavailable Unavailable LORI GABBY LORI, GABBY Unavailable Unavailable LORI [facility] Unavailable [place]available [place], [facility] [place] DUC OMAR, DUC Unavailable Unavailable OMAR DUC OMAR, DUC Unavailable Unavailable [facility] Unavailable Unavailable [place], [facility] Unavailable Unavailable [facility], [facility] Unavailable Unavailable [...] VENEREAL DISEASE 7823 EDEMA 11-12-2013 DUC OMAR 62237 MORBID 11-08-2013 [facility] INC 24073 BENIGN 11-08-2013 [facility]ENTIAL [facility] HYPERTENSIO INC N WITH DELIVERY 41359 OBESITY 11-08-2013 [facility] COMP PG [facility] CHILDBIRTH/ INC THE PP DELIVERED 650 NORMAL 11-08-2013 PIERRE LORI DELIVERY 32004 OTH&UNS CRD 11-08-2013 [facility] ENTANGL [facility] W/O COMPRS INC COMP L&D DELIV 35004 FIRST-DEGRE 11-08-2013 [facility]AL [facility] LACERATION INC WITH DELIVERY V072 NEED FOR 11-08-2013 [facility]HYLACTI [facility] C INC IMMUNOTHERA PY V270 OUTCOME OF 11-08-2013 [facility] DEL[facility]ERY [facility] SINGLE INC LIVEBORN V220 SUPERVISION 11-03-2013 GABBY SANDOVAL OF NORMAL FIRST 75800 TRANSIENT 10-27-2013 [facility]YPERTEN[facility]O [facility] N OF INC ANTEPARTUM 36575 BREECH 10-13-2013 GABBY LORI PRESENTATIO N W/O MENTION VERSION ANTPRTM 16915 EXCESS 10-13-2013 GABBY LORI GROWTH AFFECT MGMT MOTH ANTPRTM V283 ENCOUNTER 06-30-2013 GABBY SANDOVAL ROUTINE SCREEN MALFORMATIO N ULTRASONIC 6268 OTH D/O 04-26-2013 [facility]STRUATIO [facility] N&OTH ABN INC BLEED FE GNT TRACT 72017 OTHER 04-20-2013 GABBY LORI SPECIFED COMPLICATIO N ANTEPARTUM 84076 TRICHOMONAL 04-13-2013 JOEL JR LORENA VULVOVAGINI TIS [...] 10 2- 4- 00 00 SI ve AL 47 20 20 47 DE 01 17 17 71 R 3 65 PH PH AR OS MA CY 75 OF MG CY NT CA HI PS AN UL A E IN C Procedures Procedure DOS Code Location Performer Comment IAADIADOO 09254 [facility] STREPTOCO INC INC CCUS GROUP A IAADIADOO 69003 [facility] INFLUENZA INC INC OPHTH 19448 SCIFRES SCIFRES MEDICAL 6 ANG ANG XM&EVAL COMPRE NEW PT 1/> VST LEVONORGE J7302 GABBY PIERRE STREL-RLS 4 LORI LORI E INTRAUTER N CNTRACPT 52 MG URINE 84422 GABBY PIERRE 4 LORI LORI TEST VISUAL COLOR CMPRSN METHS INSERTION 95864 GABBY PIERRE 4 LORI LORI INTRAUTER INE DEVICE IUD IADNA 30173 PICKLESIM PICKLESIM CHLAMYDIA 4 ER JR LORENA ER JR LORENA TRACHOMAT IS AMPLIFIED PROBE TQ IADNA 33883 PICKLESIM PICKLESIM NEISSERIA 4 ER JR LORENA ER JR LORENA GONORRHOE AE AMPLIFIED PROBE TQ CYTP C/V 80027 PICKLESIM PICKLESIM AUTO THIN 4 ER JR LORNEA ER JR LORENA LYR PREPJ SCR MNL RESCR PHYS INJECTION 9911 [facility] OF RH 4 [facility] [place] RE[place] 7569 [facility] OTHER 4 [facility] CURRENT INC INC OBSTETRIC LACERATIO N VAGINAL 58446 GABBY LOUE DELIVERY 4 LORI LORI ONLY W/POSTPAR YANY CARE BASIC 45526 [facility] METABOLIC 4 [facility] PANEL INC INC CALCIUM TOTAL TRANSFERA 76028 [facility] SE 4 [facility] [place]ARTATE [place] [address] [facility] BLOOD/URI 4 [facility] C ACID INC INC THROMBOPL 30442 [facility] ASTIN 4 [facility] TIME INC INC PARTIAL PLASMA/WH OLE BLOOD BLOOD 02973 [facility] COUNT 4 [facility] COMPLETE INC INC AUTO&AUTO DIFRNTL WBC TRANSFERA 77826 [facility] SE 4 [facility] ALANINE INC INC AMINO ALT SGPT FIBRIN 83251 [facility] DGRADJ 4 [facility] PRODUCTS INC INC D-DIMER QUAL/SEMI ZULAM FIBRINOGE 99660 [facility] N 4 [facility] ACTIVITY INC INC PROTHROMB 75673 [facility] IN TIME 4 [facility] INC INC ANTIBODY 10107 [facility] ID RBC 4 [facility] ANTIBODIE INC INC S EA PANEL EA SERUM TQ ANTIBODY 54322 [facility] ID RBC 4 [facility] ANTIBODIE INC INC S EA PANEL EA SERUM TQ PROTHROMB 43613 [facility] IN TIME 4 [facility] INC INC FIBRINOGE 24646 L[facility] N 4 [facility] ACTIVITY INC INC FIBRIN 92036 [facility] DGRADJ 4 [facility] PRODUCTS INC INC D-DIMER QUAL/SEMI ZULMA THROMBOPL 75313 [facility] ASTIN 4 [facility] TIME INC INC PARTIAL PLASMA/[place] [address] [facility] BLOOD/URI 4 [facility] C ACID INC INC TRANSFERA 28985 [facility] SE 4 [facility] ALANINE INC INC AMINO ALT SGPT TRANSFERA 26240 [facility] SE 4 [facility] ASPARTATE INC INC AMINO AST SGOT BASIC 73897 [facility] METABOLIC 4 [facility] PANEL INC INC CALCIUM TOTAL CREATININ 01843 [facility]IRO FITCH E 4 [facility] CLEARANCE INC INC BLOOD 93575 [facility] COUNT 4 [facility] COMPLETE INC INC AUTO&AUTO DIFRNTL WBC PROTEIN 13814 [facility] XCPT 4 [facility]OS[facility] REFRACTOM INC INC ETRY SERUM PLASMA/WH L BLD US PREG 43087 GABBY PIERRE UTERUS 4 LORI LORI REAL TIME F/U TRNSABDL PER FETUS DOPPLER 93547 GABBY PIERRE VELOCIMET 4 LORI LORI RY UMBILICAL ARTERY 19400 GABBY PIERRE BIOPHYSIC 4 LORI LORI AL PROFILE W/O NON-STRES S TESTING CUL BACT 41112 COMBINED COMBINED XCPT 4 PHYSICIAN PHYSICIAN URINE S LA S LA BLOOD/STO OL AEROBIC ISOL BLOOD 25828 [facility] TYPING 4 [facility] SEROLOGIC INC INC RH (D) THERAPEUT 70038 [facility] IC 4 [facility] PROPHYLAC INC INC TIC/DX INJECTION SUBQ/IM BLOOD 08710 [facility] COUNT 4 [facility] HEMOGLOBI INC INC N BLOOD 16407 [facility] COUNT 4 [facility] HEMATOCRI INC INC T ANTIBODY 88134 [facility] SCREEN 4 [facility] RBC EACH INC INC SERUM TECHNIQUE BLOOD 01515 [facility] TYPING 4 [facility] SEROLOGIC INC INC ABO INJECTION J2790 [facility] RHO D IG 4 [facility]OS[facility] HUMAN INC INC FULL DOSE 300 MCG GLUCOSE 52766 GABBY PIERRE TOLERANCE 3 LORI LORI TEST GTT 3 SPECIMENS COLLECTIO 65593 GABBY PIERRE N 3 LORI LORI CAPILLARY BLOOD SPECIMEN US PREG 56685 GABBY PIERRE UTERUS 3 LORI LORI AFTER TRIMEST GESTATION ALPHA-FET 32061 [facility] OPROTEIN 3 [facility] [place] [address] [facility] ESTRIOL 3 [facility] INC INC GONADOTRO 36506 [facility] PIN 3 [facility]OS[facility] CHORIONIC INC INC QUANTITAT MCKENZIE GONADOTRO 31788 [facility] PIN 3 [facility]OS[facility] CHORIONIC INC INC QUANTITAT MCKENZIE US PREG 22866 GABBY PIERRE UTERUS 3 LORI LORI REAL TIME W/IMAGE DCMTN TRANSVAG URINE 57424 GABBY PIERRE 3 LORI LORI TEST VISUAL COLOR CMPRSN METHS CYTP C/V 98624 PICKLESIM PICKLESIM AUTO THIN 3 ER JR LORENA ER JR LORENA LYR PREPJ SCR MNL RESCR PHYS Encounters Encounter Start End Date Code Location Performer Type Date OFFICE 91192 [facility] 7 7 [facility] T VISIT 5 INC MINUTES [facility] 7 7 [facility] OUTPATIEN INC T EMERGENCY 85450 DUC XAVIER 4 4 OMAR OMAR DEPARTMEN T VISIT HIGH/URGE NT SEVERITY [facility] INPATIENT INC OFFICE 29929 [facility]ERRE PIERRE OUTPATIEN 4 4 LORI LORI T VISIT 15 MINUTES OFFICE 73799 [facility]ERRE PIERRE OUTPATIEN 4 4 LORI LORI T VISIT 15 MINUTES [facility] OUTPATIEN INC T OFFICE 20726 PIERRE PIERRE OUTPATIEN 4 4 LORI LORI T VISIT 15 MINUTES OFFICE 73350 PIERRE PIERRE OUTPATIEN 4 4 LORI LORI T VISIT 15 MINUTES [facility] - 4 4 [facility] OUTPATIEN INC T OFFICE 62860 PIERRE PIERRE OUTPATIEN 4 4 LORI LORI T VISIT 15 MINUTES OFFICE 12767 PIERRE PIERRE OUTPATIEN 4 4 LORI LORI T VISIT 15 MINUTES OFFICE 73202 PIERRE PIERRE OUTPATIEN 4 4 LORI LORI T VISIT 15 MINUTES OFFICE 49472 [facility]ERRE PIERRE OUTPATIEN 4 4 LORI LORI T VISIT 15 MINUTES OFFICE 18417 [facility]RE PIERRE OUTPATIEN 4 4 L[facility]I L[facility]I T VISIT 15 MINUTES [facility] OUTPATIEN INC T OFFICE 66236 [facility]ERRE PIERRE OUTPATIEN 3 3 LORI LORI T VISIT 5 MINUTES OFFICE 36089 [facility] PIERRE OUTPATIEN 3 3 LORI LORI T VISIT 15 MINUTES OFFICE 10798 [facility] PIERRE OUTPATIEN 3 3 [facility]I [facility]I T VISIT 15 MINUTES [facility] OUTPATIEN INC T OFFICE 81722 GABBY LOUE OUTPATIEN 3 3 LORI LORI T VISIT 15 MINUTES OFFICE 87095 [facility] [place] MINUTES [facility] OUTPATIEN [facility] T OFFICE 49621 GABBY PIERRE OUTPATIEN 3 3 LORI LORI T NEW 45 MINUTES OFFICE 62485 [facility] 3 3 [facility] T VISIT CENTER CENTER 25 MINUTES
== END 2017-03-15 21:21 | disposition home or self-care (01) ==
LOC: ER 20:05
PROC: 0HQ1XZZ Repair Face Skin, External Approach (ICD-10-PCS; principal; 2017-03-15)
DX: S01.81XA Laceration without foreign body of other part of head, initial encounter (principal); Z72.0 Tobacco use; Z23 Encounter for immunization; W21.07XA Struck by softball, initial encounter; Y93.64 Activity, baseball; Y92.328 Other athletic field as the place of occurrence of the external cause